=== PATIENT | male | born 1990 | race African-American/Black ===

== ENCOUNTER 2019-07-19 02:34 | Emergency (ER) | payer MEDICAID ==
[~2019-07-19] VITALS: Ht 190.5 cm; Wt 82.6 kg
--- NOTE | 2019-07-19 02:45 | NUR ---
Patient came from home. patient stated he was carving pumpkin with a knife and accidently cut his left thumb. Patient denies any pain at this time. Patient neuro check done. Capillary refill sufficen, <3 seconds,.
[2019-07-19] MEDS ORDERED: LIDOCAINE HCL 1% 20 ML VIAL IJ ONE (03:00)
--- NOTE | 2019-07-19 03:10 | NUR ---
Dr. Stout at bedside providing treatment.
[2019-07-19] MEDS ORDERED: NEOMY/BACITRA/POLYMYXIN B OINT UD PACKET TP ONE (03:38)
[2019-07-19] MEDS ORDERED: IBUPROFEN 800 MG TABLET ONE (03:50)
[2019-07-19] MEDS ORDERED: AMOXICILLIN-CLAVUL 875-125MG TABLET PO ONE (04:15)
[2019-07-19] MEDS ORDERED: IBUPROFEN 800 MG TABLET PO ONE (04:15)
[2019-07-19] MEDS ORDERED: AMOXICILLIN-CLAVUL 875-125MG TABLET ONE (04:21)
--- NOTE | 2019-07-19 04:31 | NUR ---
Patient discharged to home in stable conditon. Written and verbal after care instructions given. Patient verbalizes understanding of instructions.Patient ambulatory with steady gait. exit care paockage and personal belongings taken home with the patient at discharge. Patient denies any pain/discomfort at this time.
[2019-07-19 04:34] VITALS: BP 110/71
== END 2019-07-19 04:35 | disposition home or self-care (01) ==
LOC: ER 02:46
DX: S61.012A Laceration without foreign body of left thumb without damage to nail, initial encounter (principal); F17.200 Nicotine dependence, unspecified, uncomplicated; W26.0XXA Contact with knife, initial encounter; Y93.89 Activity, other specified; Y92.89 Other specified places as the place of occurrence of the external cause; Y99.8 Other external cause status
CPT/HCPCS: 12002; 99283; J3490; A4217; A4663